=== PATIENT | male | born 1945 | race Caucasian/White ===

== ENCOUNTER 2017-01-24 17:28 | Emergency (ER) | payer SELFPAY ==
[~2017-01-24] VITALS: Ht 177.8 cm; Wt 112.0 kg
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
[2017-01-24 19:21] VITALS: BP 220/170; PULSE 83; RESP 16; TEMP 97.8; O2SAT 97
[2017-01-24] MEDS ORDERED: ASPI81CH CHEW (19:34)
[2017-01-24] MEDS ORDERED: VENL150T PO (19:34)
[2017-01-24] MEDS ORDERED: BUSP5TAB PO (19:34)
[2017-01-24] MEDS ORDERED: LORA10TA PO (19:34)
[2017-01-24 19:38] LABS: AMPHETAMINE, URINE NEG (NEG); BARBITURATES, URINE NEG (NEG); COCAINE, URINE NEG (NEG)
[2017-01-24 19:45] LABS: AUTOMATED NEUTROPHIL # 5.5 TH/MM3 (1.8-7.7); BASOPHIL # 0.1 TH/MM3 (0-0.2); BASOPHIL % 0.8 % (0.0-2.0); EOSINOPHIL # 0.2 TH/MM3 (0-0.4); HEMATOCRIT 43.9 % (39.0-51.0); HEMO FLAGS DIFF FINAL; LYMPH % 23.9 % (9.0-44.0); LYMPHOCYTE # 2.1 TH/MM3 (1.0-4.8); MEAN CELL VOLUME 90.9 FL (80.0-100.0); MEAN CORPUSCULAR HEMOGLOBIN 31.1 PG (27.0-34.0); MEAN CORPUSCULAR HGB CONC 34.3 % (32.0-36.0); MONO % 9.9 % (0.0-8.0); NEUT % 63.4 % (16.0-70.0); PLATELET COUNT 316 TH/MM3 (150-450); RED BLOOD COUNT 4.83 MIL/MM3 (4.50-5.90); RED CELL DISTRIBUTION WIDTH 13.5 % (11.6-17.2); WHITE BLOOD COUNT 8.7 TH/MM3 (4.0-11.0)
[2017-01-24 19:49] LABS: BLOOD, URINE SMALL (NEG); GLUCOSE,URINE NEG (NEG); KETONE, URINE NEG (NEG); MUCUS URINE FEW /lpf (OCC); NITRITE,URINE NEG (NEG); SQUAMOUS EPITHELIAL CELL URINE <1 /hpf (0-5); URINE COLOR YELLOW (YELLW/STRAW)
[2017-01-24 19:51] LABS: COMMENT (UR) CULT NOT INDICATED; CULTURE IF INDICATED CULT NOT INDICATED
[2017-01-24 20:10] LABS: ALKALINE PHOSPHATASE 79 U/L (45-117); ALT (GPT) 43 U/L (12-78); ANION GAP 9 MEQ/L (5-15); AST (GOT) 48 U/L (15-37); BLOOD UREA NITROGEN 21 MG/DL (7-18); CHLORIDE 103 MEQ/L (98-107); GLOMERULAR FILTRATION RATE 56 ML/MIN (>89); POTASSIUM 4.1 MEQ/L (3.5-5.1); SODIUM (NA) 137 MEQ/L (136-145); TOTAL BILIRUBIN ADULT 0.4 MG/DL (0.2-1.0)
[2017-01-24 21:10] VITALS: BP 203/97
[2017-01-24] MEDS ORDERED: cloNIDine HCL 0.2 MG TAB PO ONE (22:00)
[2017-01-24 22:22] VITALS: BP 190/120; PULSE 81; RESP 17; O2SAT 98
[2017-01-25 02:21] VITALS: BP 165/87; PULSE 87; RESP 18; O2SAT 99
[2017-01-25 06:40] VITALS: BP 189/114; PULSE 66; RESP 18; O2SAT 95
[2017-01-25] MEDS ORDERED: LISINOPRIL 10 MG TAB PO ONE (09:00)
[2017-01-25] MEDS ORDERED: ONDANSETRON ODT 4 MG TAB PO ONE (09:00)
[2017-01-25] MEDS ORDERED: IBUPROFEN 800 MG TAB PO ONE (09:00)
[2017-01-25 09:55] VITALS: BP 165/97; PULSE 81; RESP 18
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
== END 2017-01-25 15:07 | disposition home or self-care (01) ==
LOC: NEDAMB 17:28 → NEPJ 01-25 15:07
DX: F43.10 Post-traumatic stress disorder, unspecified (principal); I10 Essential (primary) hypertension; M25.511 Pain in right shoulder; G89.29 Other chronic pain
CPT/HCPCS: 80053; 80307; 81001; 85025; 99284